=== PATIENT | male | born 1970 | race African-American/Black ===

== ENCOUNTER 2022-08-12 08:24 | Emergency (ER) | payer MEDICAID ==
[~2022-08-12] VITALS: Ht 182.9 cm; Wt 90.0 kg
[2022-08-12 08:25] VITALS: BP 142/84
== END 2022-08-13 09:11 | disposition left against medical advice (07) ==
LOC: ER 08:24
DX: R10.31 Right lower quadrant pain (principal); F14.10 Cocaine abuse, uncomplicated; Z98.890 Other specified postprocedural states
CPT/HCPCS: 99283

== ENCOUNTER 2022-09-12 21:47 | Emergency (ER) | payer MEDICAID ==
[~2022-09-12] VITALS: Ht 182.9 cm; Wt 102.0 kg
[2022-09-12 23:29] LABS: CHLORIDE 107 mEq/L (98-107)
[2022-09-12 23:32] LABS: BASOPHILS % 0.4 % (0.0-2.0); EOSINOPHILS % 8.8 % (0.0-5.0); HEMATOCRIT. 37.2 % (42.0-52.0); HEMOGLOBIN. 12.2 g/dL (14.0-18.0); LYMPHOCYTES % 26.7 % (20.0-50.0); MEAN CORPUSCULAR HEMOGLOBIN 28.7 pg (28.0-32.0); MEAN CORPUSCULAR VOLUME 87.1 fL (80.0-94.0); MEAN PLATELET VOLUME 6.8 fl (7.4-10.4); MONOCYTES % 10.8 % (2.0-8.0); NEUTROPHILS % 53.3 % (40.0-76.0); PLATELET 333 x1000/uL (130-400); RED BLOOD CELL COUNT 4.27 mill/uL (4.7-6.1); RED CELL DISTRIBUTION WIDTH 15.4 % (11.6-14.6)
[2022-09-13] VITALS: BP 136/79
[2022-09-13] MEDS ORDERED: IBUP-2028 MT (03:56)
== END 2022-09-13 04:56 | disposition home or self-care (01) ==
LOC: ER 21:47
DX: K40.90 Unilateral inguinal hernia, without obstruction or gangrene, not specified as recurrent (principal)
CPT/HCPCS: 36415; 74176; 80053; 85025; 99284

== ENCOUNTER 2023-06-27 08:44 | Emergency (ER) | payer MEDICAID ==
[~2023-06-27] VITALS: Ht 185.4 cm; Wt 84.0 kg
[~2023-06-27 08:44] MED LIST: IBUP-2028 MT
[2023-06-27 08:55] VITALS: BP 174/120; PULSE 70; RESP 16; TEMP 98.5; O2SAT 100
[2023-06-27 10:07] LABS: BASOPHILS % 1.2 % (0.0-2.0); EOSINOPHILS % 3.9 % (0.0-5.0); HEMATOCRIT. 45.2 % (42.0-52.0); HEMOGLOBIN. 14.5 g/dL (14.0-18.0); LYMPHOCYTES % 20.2 % (20.0-50.0); MEAN CORPUSCULAR HEMOGLOBIN 28.8 pg (28.0-32.0); MEAN CORPUSCULAR VOLUME 89.9 fL (80.0-94.0); MEAN PLATELET VOLUME 6.4 fl (7.4-10.4); NEUTROPHILS % 66.7 % (40.0-76.0); PLATELET 353 x1000/uL (130-400); RED BLOOD CELL COUNT 5.03 mill/uL (4.7-6.1); RED CELL DISTRIBUTION WIDTH 14.5 % (11.6-14.6); WHITE BLOOD COUNT 7.2 x1000/uL (4.5-11.0)
[2023-06-27 10:16] LABS: PROTHROMBIN TIME 11.1 sec (9.6-11.0)
[2023-06-27 10:28] LABS: ALANINE AMINOTRANSFERASE 25 IU/L (10-49); ALBUMIN 4.1 g/dL (3.2-4.8); ASPARTATE AMINOTRANSFERASE 17 IU/L (<34); BILIRUBIN TOTAL 0.4 mg/dL (0.1-1.0); CALCIUM 9.1 mg/dL (8.7-10.4); CARBON DIOXIDE 29 mEq/L (21-32); CHLORIDE 101 mEq/L (98-107); CREATININE 0.9 mg/dL (0.6-1.3); GLUCOSE 129 mg/dL (70-105); POTASSIUM 4.5 mEq/L (3.5-5.1); PROTEIN TOTAL 7.8 g/dL (6.0-8.3); SODIUM 134 mEq/L (136-145); TROPONIN I HIGH SENSITIVITY 5 ng/L (3.0-53); UREA NITROGEN BLOOD 13 mg/dL (9-23)
[2023-06-27] MEDS: KETOROLAC 30MG/ML VIAL IV STA (11:22)
[2023-06-27] MEDS: SODIUM CHLORIDE 0.9% 1,000 ML IV ONE (11:22)
[2023-06-27] MEDS ORDERED: NA P133E4 RC (13:15)
[2023-06-27 13:41] LABS: CLARITY URINE CLEAR (CLEAR); COLOR URINE YELLOW (YELLOW); GLUCOSE URINE NEGATIVE (NEGATIVE); KETONES URINE NEGATIVE (NEGATIVE); LEUKOCYTE ESTERASE URINE NEGATIVE (NEGATIVE); NITRITE URINE NEGATIVE (NEGATIVE); OCCULT BLOOD URINE NEGATIVE (NEGATIVE); PROTEIN URINE NEGATIVE (NEGATIVE); SPECIFIC GRAVITY URINE 1.015 (1.005-1.030); UROBILINOGEN URINE 0.2 E.U./dL (0.2-1.0)
== END 2023-06-27 13:42 | disposition home or self-care (01) ==
LOC: ER 08:44
DX: K59.00 Constipation, unspecified (principal); I10 Essential (primary) hypertension; Z88.6 Allergy status to analgesic agent; Z98.890 Other specified postprocedural states
CPT/HCPCS: 99285; 74177; 96360; 80053; 81003; 83605; 83690; 85025; 85610; 86850; 86900; 86901; 84484; 36415; J7030

== ENCOUNTER 2023-06-27 23:28 | Emergency (ER) | payer MEDICAID ==
[~2023-06-27] VITALS: Ht 185.4 cm; Wt 91.0 kg
[~2023-06-27 23:28] MED LIST changes: +NA P133E4 RC
[2023-06-27 23:31] VITALS: BP 160/99; PULSE 77; RESP 18; TEMP 98.1; O2SAT 99
== END 2023-06-28 02:30 | disposition left against medical advice (07) ==
LOC: ER 23:39
DX: R10.9 Unspecified abdominal pain (principal); Z53.21 Procedure and treatment not carried out due to patient leaving prior to being seen by health care provider
CPT/HCPCS: 99281

== ENCOUNTER 2023-07-15 03:05 | Emergency (ER) | payer MEDICAID ==
[~2023-07-15] VITALS: Ht 175.3 cm; Wt 70.0 kg
[2023-07-15 03:08] VITALS: BP 139/82; PULSE 76; RESP 16; TEMP 97.9; O2SAT 100
== END 2023-07-15 08:15 | disposition left against medical advice (07) ==
LOC: ER 03:05
DX: K64.9 Unspecified hemorrhoids (principal); Z53.21 Procedure and treatment not carried out due to patient leaving prior to being seen by health care provider
CPT/HCPCS: 99281

== ENCOUNTER 2023-07-19 18:56 | Emergency (ER) | payer MEDICAID ==
[~2023-07-19] VITALS: Ht 188 cm; Wt 72.0 kg
[2023-07-19 19:15] VITALS: BP 146/102; PULSE 78; RESP 20; TEMP 98.2; O2SAT 99
== END 2023-07-19 20:03 | disposition left against medical advice (07) ==
LOC: ER 18:56
DX: R10.9 Unspecified abdominal pain (principal); Z53.21 Procedure and treatment not carried out due to patient leaving prior to being seen by health care provider
CPT/HCPCS: 99281

== ENCOUNTER 2023-08-17 06:57 | Emergency (ER) | payer MEDICAID ==
[~2023-08-17] VITALS: Ht 185.4 cm; Wt 96.0 kg
[~2023-08-17 06:57] MED LIST changes: +OMEP20TA15 MT; +SUCR1TAB30 MT
[2023-08-17 07:00] VITALS: BP 174/96; PULSE 71; RESP 16; TEMP 98.3; O2SAT 100
[2023-08-17 08:01] LABS: INR 0.9; PROTHROMBIN TIME 10.6 sec (9.6-11.0)
[2023-08-17 08:05] LABS: ALANINE AMINOTRANSFERASE 24 IU/L (10-49); ALBUMIN 4.1 g/dL (3.2-4.8); ASPARTATE AMINOTRANSFERASE 17 IU/L (<34); BILIRUBIN TOTAL 0.3 mg/dL (0.1-1.0); CARBON DIOXIDE 29 mEq/L (21-32); CHLORIDE 104 mEq/L (98-107); CREATININE 0.8 mg/dL (0.6-1.3); GLUCOSE 112 mg/dL (70-105); PROTEIN TOTAL 7.7 g/dL (6.0-8.3); SODIUM 135 mEq/L (136-145); TROPONIN I HIGH SENSITIVITY 4 ng/L (3.0-53); UREA NITROGEN BLOOD 11 mg/dL (9-23)
[2023-08-17 08:15] LABS: BASOPHILS % 1.1 % (0.0-2.0); EOSINOPHILS % 3.4 % (0.0-5.0); HEMATOCRIT. 37.2 % (42.0-52.0); LYMPHOCYTES % 24.3 % (20.0-50.0); MEAN CORPUSCULAR HEMOGLOBIN 28.2 pg (28.0-32.0); MEAN CORPUSCULAR HGB CONC 32.3 g/dL (31.0-37.0); MEAN CORPUSCULAR VOLUME 87.3 fL (80.0-94.0); MEAN PLATELET VOLUME 6.4 fl (7.4-10.4); NEUTROPHILS % 58.2 % (40.0-76.0); PLATELET 446 x1000/uL (130-400); RED BLOOD CELL COUNT 4.27 mill/uL (4.7-6.1); RED CELL DISTRIBUTION WIDTH 14.4 % (11.6-14.6); WHITE BLOOD COUNT 7.8 x1000/uL (4.5-11.0)
[2023-08-18] MEDS ORDERED: ATEN-42 PO (16:25)
[2023-08-18] MEDS ORDERED: ERGO1250 PO (16:25)
[2023-08-18] MEDS ORDERED: SUCR1TAB PO (16:25)
[2023-08-18] MEDS ORDERED: OMEP20CA14 PO (16:25)
[2023-08-19] MEDS ORDERED: AMLO5TAB88 MT (10:56)
== END 2023-08-17 09:54 | disposition left against medical advice (07) ==
LOC: ER 07:46
DX: R10.9 Unspecified abdominal pain (principal); Z53.21 Procedure and treatment not carried out due to patient leaving prior to being seen by health care provider
CPT/HCPCS: 36415; 80053; 84484; 85025; 99281

== ENCOUNTER 2023-08-31 08:51 | Emergency (ER) | payer MEDICAID ==
[~2023-08-31] VITALS: Ht 188 cm; Wt 73.0 kg
[~2023-08-31 08:51] MED LIST changes: +AMLO5TAB88 MT; +ATEN-42 PO; +ERGO1250 PO; -IBUP-2028 MT; -NA P133E4 RC; +OMEP20CA14 PO; -OMEP20TA15 MT; +SUCR1TAB PO; -SUCR1TAB30 MT
[2023-08-31 08:53] VITALS: BP 146/100; PULSE 77; RESP 18; TEMP 98.2; O2SAT 98
== END 2023-08-31 09:49 | disposition home or self-care (01) ==
LOC: ER 08:51
DX: R10.819 Abdominal tenderness, unspecified site (principal); I10 Essential (primary) hypertension; Z98.890 Other specified postprocedural states; Z88.0 Allergy status to penicillin; Z88.6 Allergy status to analgesic agent
CPT/HCPCS: 99283

== ENCOUNTER 2023-11-28 10:08 | Emergency (ER) | payer MEDICAID ==
[~2023-11-28] VITALS: Ht 182.9 cm; Wt 82.0 kg
[2023-11-28 10:17] VITALS: BP 136/84; PULSE 78; RESP 16; TEMP 97.7; O2SAT 100
== END 2023-11-28 10:50 | disposition left against medical advice (07) ==
LOC: ER 10:08
DX: R10.2 Pelvic and perineal pain (principal)
CPT/HCPCS: 99283

== ENCOUNTER 2024-01-20 23:13 | Emergency (ER) | payer MEDICAID ==
[~2024-01-20] VITALS: Ht 182.9 cm; Wt 80.0 kg
[2024-01-20 23:14] VITALS: BP 181/81; PULSE 79; RESP 16; TEMP 98.7; O2SAT 98
[2024-01-20] MEDS ORDERED: ACETAMINOPHEN 1000MG/100ML 100 ML IV ONE (23:30)
[2024-01-20] MEDS ORDERED: ONDANSETRON HCL 4MG/2ML INJ IV ONE (23:30)
[2024-01-21] MEDS ORDERED: ONDANSETRON HCL 4MG/2ML INJ IV NR (00:30)
== END 2024-01-21 01:44 | disposition left against medical advice (07) ==
LOC: ER 23:13
DX: K40.90 Unilateral inguinal hernia, without obstruction or gangrene, not specified as recurrent (principal); I10 Essential (primary) hypertension; F12.90 Cannabis use, unspecified, uncomplicated; F10.20 Alcohol dependence, uncomplicated; F15.90 Other stimulant use, unspecified, uncomplicated; Z88.6 Allergy status to analgesic agent; Z88.0 Allergy status to penicillin; Y90.9 Presence of alcohol in blood, level not specified
CPT/HCPCS: 99283; J0131

== ENCOUNTER 2024-01-30 16:15 | Inpatient (IN) | payer MEDICAID ==
[~2024-01-30] VITALS: Ht 182.9 cm; Wt 72.6 kg
[2024-01-30] MEDS: ONDANSETRON HCL 4MG/2ML INJ IV STA ×2 (17:55→20:32)
[2024-01-30] MEDS: MORPHINE SULFATE 4 MG/ML INJ (FOR IV/IM USE) IV STA ×2 (17:56→20:23)
[2024-01-30] MEDS: SODIUM CHLORIDE 0.9% 1,000 ML IV ONE (17:57)
[2024-01-30 18:08] LABS: BASOPHILS % 0.7 % (0.0-2.0); EOSINOPHILS % 0.7 % (0.0-5.0); HEMATOCRIT. 46.5 % (42.0-52.0); HEMOGLOBIN. 15.3 g/dL (14.0-18.0); LYMPHOCYTES % 13.4 % (20.0-50.0); MEAN CORPUSCULAR HEMOGLOBIN 28.5 pg (28.0-32.0); MEAN CORPUSCULAR HGB CONC 32.9 g/dL (31.0-37.0); MEAN CORPUSCULAR VOLUME 86.7 fL (80.0-94.0); MEAN PLATELET VOLUME 6.6 fl (7.4-10.4); MONOCYTES % 9.8 % (2.0-8.0); NEUTROPHILS % 75.4 % (40.0-76.0); PLATELET 368 x1000/uL (130-400); RED BLOOD CELL COUNT 5.36 mill/uL (4.7-6.1); WHITE BLOOD COUNT 9.9 x1000/uL (4.5-11.0)
[2024-01-30 18:14] LABS: CLARITY URINE CLEAR (CLEAR); COLOR URINE YELLOW (YELLOW); GLUCOSE URINE NEGATIVE (NEGATIVE); KETONES URINE 3+ (NEGATIVE); LEUKOCYTE ESTERASE URINE TRACE (NEGATIVE); NITRITE URINE NEGATIVE (NEGATIVE); OCCULT BLOOD URINE NEGATIVE (NEGATIVE); PROTEIN URINE TRACE (NEGATIVE); SPECIFIC GRAVITY URINE 1.024 (1.005-1.030)
[2024-01-30 18:21] LABS: CHLORIDE 97 mEq/L (98-107); PARTIAL THROMBOPLASTIN TIME 29.3 sec (23.4-31.0); POTASSIUM 4.3 mEq/L (3.5-5.1); PROTHROMBIN TIME 11.4 sec (9.6-11.0); SODIUM 133 mEq/L (136-145)
[2024-01-30 18:22] LABS: CARBON DIOXIDE 32 mEq/L (21-32)
[2024-01-30 18:23] LABS: CALCIUM 10.2 mg/dL (8.7-10.4)
[2024-01-30 18:27] LABS: CREATININE 0.9 mg/dL (0.6-1.3); GLUCOSE 96 mg/dL (70-105)
[2024-01-30 18:28] LABS: UREA NITROGEN BLOOD 12 mg/dL (9-23)
[2024-01-30 18:29] LABS: ALANINE AMINOTRANSFERASE 17 IU/L (10-49); ALBUMIN 4.7 g/dL (3.2-4.8); ASPARTATE AMINOTRANSFERASE 16 IU/L (<34)
[2024-01-30 18:29] LABS: BACTERIA URINE 1+; SQUAMOUS EPITHELIAL CELL URINE FEW /lpf (RARE/1+); WBC URINE 0-2 /hpf (0-2)
[2024-01-30 18:30] LABS: BILIRUBIN TOTAL 0.5 mg/dL (0.1-1.0)
[2024-01-30 18:30] LABS: MUCUS URINE 1+ /lpf (NONE/TRACE); RBC URINE 0-2 /hpf (0-2)
[2024-01-30] MEDS: LEVOFLOXACIN 500MG PREMIX 100 ML IV ONE (20:33)
[2024-01-30] MEDS: HYDRALAZINE 20MG/ML VIAL IV ONE (20:33)
[2024-01-31] VITALS: BP 149/77; PULSE 62; RESP 20; TEMP 37.252
[2024-01-31] MEDS ORDERED: MAGNESIUM/ALUMINUM HYDROXIDE/SIMETHICONE 30ML UDC PO PRN (01:45)
[2024-01-31] MEDS ORDERED: ONDANSETRON HCL 4MG/2ML INJ IV PRN ×3 (01:45→09:00)
[2024-01-31] MEDS ORDERED: DIPHENHYDRAMINE 50MG/ML VIAL IV PRN (01:45)
[2024-01-31] MEDS ORDERED: HYDROCODONE/ACETAMINOPHEN 5/325MG TABLET PO PRN (01:45)
[2024-01-31] MEDS ORDERED: ACETAMINOPHEN 325MG TABLET PO PRN ×2 (01:45)
[2024-01-31] MEDS: HYDROCODONE/ACETAMINOPHEN 7.5/325MG TABLET PO PRN (01:59)
[2024-01-31] MEDS: ZOLPIDEM TARTRATE 5MG TABLET PO PRN (01:59)
[2024-01-31] MEDS: SODIUM CHLORIDE 0.9% 3ML FLUSH IVF SCH (06:47)
[2024-01-31] MEDS ORDERED: SKIN ADHESIVE 0.7 GM EA TOP ONE (07:28)
[2024-01-31] MEDS ORDERED: BUPIVACAINE HCL/PF 0.5% (5MG/ML) 10ML ONE (07:28)
[2024-01-31] MEDS ORDERED: LIDOCAINE HCL 1% 10 MG/ML 10ML VIAL ONE (07:59)
[2024-01-31] MEDS ORDERED: DEXAMETHASONE 4MG/ML 1ML VIAL ONE (07:59)
[2024-01-31] MEDS ORDERED: ROCURONIUM BROMIDE 10MG/ML VIAL 5ML IV ONE (07:59)
[2024-01-31] MEDS ORDERED: ONDANSETRON HCL 4MG/2ML INJ ONE (07:59)
[2024-01-31] MEDS ORDERED: PROPOFOL 200MG/20ML VIAL IV ONE (08:00)
[2024-01-31] MEDS ORDERED: FENTANYL CITRATE/PF 50MCG/ML 2ML VIAL ONE (08:00)
[2024-01-31] MEDS ORDERED: MIDAZOLAM HCL 2 MG/2 ML VIAL ONE (08:00)
[2024-01-31] MEDS ORDERED: SUGAMMADEX SODIUM 200MG/2ML VIAL IV ONE (08:49)
[2024-01-31] MEDS ORDERED: HYDROMORPHONE HCL/PF 1MG/ML INJ IV PRN (09:00)
[2024-01-31] MEDS ORDERED: ENOXAPARIN 40MG/0.4ML SYR SUBCUT SCH (09:00)
[2024-01-31] MEDS: OMEPRAZOLE 20MG CAPSULE EXTENDED RELEASE PO SCH (09:00)
[2024-01-31] MEDS ORDERED: CEFAZOLIN SODIUM 1000MG/VIAL ONE (09:10)
[2024-01-31] MEDS ORDERED: NALOXONE HCL 0.4MG/ML VIAL IV PRN (09:15)
[2024-01-31] MEDS: FENTANYL CITRATE/PF 50MCG/ML 2ML VIAL IV PRN (10:34)
[2024-01-31] MEDS: DEXT 5%/0.45% NACL KCL 20MEQ/L 1,000 ML IV SCH (14:00)
[2024-01-31] MEDS: MORPHINE SULFATE 2 MG/ML INJ (NOT FOR IM USE) IV PRN (15:13)
[2024-01-31 16:00] VITALS: BP 153/95; PULSE 90; RESP 20; TEMP 36.114; O2SAT 99
[2024-01-31 20:00] VITALS: BP 177/107; PULSE 74; RESP 20; TEMP 36.72516; O2SAT 99
[2024-01-31] MEDS: SENNOSIDES 8.6MG TABLET PO SCH (21:23)
[2024-01-31] MEDS: PANTOPRAZOLE 40MG DR TABLET PO SCH (21:23)
[2024-01-31] MEDS: DOCUSATE SODIUM 100MG CAPSULE PO SCH (21:28)
[2024-01-31] MEDS: MORPHINE SULFATE 4 MG/ML INJ (FOR IV/IM USE) IV PRN (22:59)
[2024-01-31] MEDS: LEVOFLOXACIN 500MG PREMIX 100 ML IV SCH (23:46)
[2024-02-01] VITALS: BP 147/87; PULSE 78; RESP 19; TEMP 36.61404; O2SAT 100
[2024-02-01] MEDS: BISACODYL 10MG SUPP PR PRN (02:04)
[2024-02-01 04:00] VITALS: BP 134/106; PULSE 76; RESP 19; TEMP 36.3918; O2SAT 99
[2024-02-01] MEDS: CLONIDINE 0.1MG TABLET PO PRN (05:16)
[2024-02-01 08:00] VITALS: BP 155/87; PULSE 75; RESP 18; TEMP 36.83628; O2SAT 98
[2024-02-01] MEDS: ENOXAPARIN 40MG/0.4ML SYR SUBCUT SCH (08:14)
[2024-02-01 12:00] VITALS: BP 122/67; PULSE 72; RESP 18; TEMP 36.61404; O2SAT 98
[2024-02-01 15:28] VITALS: BP 139/84; PULSE 88; TEMP 98.1; O2SAT 98
== END 2024-02-01 16:00 | disposition home or self-care (01) | DRG 228 ==
LOC: ER 16:15 → 5WST 20:13 → EDBEDREQ 20:21 → 8WST 23:57
PROVIDERS: ADMIT Internal Medicine; ATTEND Internal Medicine
PROC: 0YU50JZ Supplement Right Inguinal Region with Synthetic Substitute, Open Approach (ICD-10-PCS; principal; 2024-01-31)
DX: K40.91 Unilateral inguinal hernia, without obstruction or gangrene, recurrent (principal); I10 Essential (primary) hypertension; N45.1 Epididymitis; Z96.642 Presence of left artificial hip joint; Z88.0 Allergy status to penicillin; Z88.6 Allergy status to analgesic agent
CPT/HCPCS: 36415; 71045; 74176; 76870; 80053; 81003; 85025; 86850; 86900; 93005; 93976; 99285; C1781; J0360; J0690; J1100; J1650; J1956; J2250; J2270; J2405; J2704; J3010; J3490; J7030

== ENCOUNTER 2024-02-15 21:05 | Emergency (ER) | payer MEDICAID ==
[~2024-02-15] VITALS: Ht 170.2 cm; Wt 64.0 kg
[2024-02-15 21:20] VITALS: TEMP 98.1; O2SAT 99
[2024-02-15] MEDS: HYDROCODONE/ACETAMINOPHEN 5/325MG TABLET PO ONE (22:30)
[2024-02-15] MEDS: ACETAMINOPHEN 1000MG/100ML 100 ML IV ONE (22:30)
[2024-02-15 22:51] LABS: BASOPHILS % 0.8 % (0.0-2.0); EOSINOPHILS % 2.7 % (0.0-5.0); HEMATOCRIT. 38.5 % (42.0-52.0); LYMPHOCYTES % 15.3 % (20.0-50.0); MEAN CORPUSCULAR HEMOGLOBIN 29.6 pg (28.0-32.0); MEAN CORPUSCULAR HGB CONC 33.7 g/dL (31.0-37.0); MEAN CORPUSCULAR VOLUME 87.7 fL (80.0-94.0); MEAN PLATELET VOLUME 6.3 fl (7.4-10.4); MONOCYTES % 7.8 % (2.0-8.0); NEUTROPHILS % 73.4 % (40.0-76.0); PLATELET 397 x1000/uL (130-400); RED BLOOD CELL COUNT 4.39 mill/uL (4.7-6.1); RED CELL DISTRIBUTION WIDTH 15.4 % (11.6-14.6)
[2024-02-15 22:56] LABS: CHLORIDE 100 mEq/L (98-107); POTASSIUM 3.9 mEq/L (3.5-5.1); SODIUM 135 mEq/L (136-145)
[2024-02-15 22:57] LABS: CARBON DIOXIDE 31 mEq/L (21-32); INR 1.1; PROTHROMBIN TIME 11.8 sec (9.6-11.0)
[2024-02-15 22:58] LABS: CALCIUM 9.4 mg/dL (8.7-10.4)
[2024-02-15 23:02] LABS: CREATININE 0.8 mg/dL (0.6-1.3); GLUCOSE 93 mg/dL (70-105)
[2024-02-15 23:03] LABS: UREA NITROGEN BLOOD 6 mg/dL (9-23)
[2024-02-15 23:04] LABS: ALANINE AMINOTRANSFERASE 21 IU/L (10-49); ALBUMIN 4.3 g/dL (3.2-4.8); ASPARTATE AMINOTRANSFERASE 17 IU/L (<34); BILIRUBIN DIRECT 0.2 mg/dL (<=3.0)
[2024-02-15 23:05] LABS: BILIRUBIN TOTAL 0.6 mg/dL (0.1-1.0); PROTEIN TOTAL 7.6 g/dL (6.0-8.3)
[2024-02-15 23:28] LABS: ETHANOL BLOOD < 10 mg/dL (<10)
[2024-02-16] MEDS ORDERED: ACET-2708 MT (00:07)
[2024-02-16] MEDS ORDERED: ONDA4TAB50 MT (00:07)
[2024-02-16 00:58] VITALS: BP 151/86; PULSE 80; RESP 18; O2SAT 100
== END 2024-02-16 00:59 | disposition home or self-care (01) ==
LOC: ER 21:05
DX: G89.18 Other acute postprocedural pain (principal); R10.9 Unspecified abdominal pain; I10 Essential (primary) hypertension; F12.10 Cannabis abuse, uncomplicated; Z79.899 Other long term (current) drug therapy; Z88.0 Allergy status to penicillin; Z88.6 Allergy status to analgesic agent
CPT/HCPCS: 36415; 80048; 80076; 80320; 83605; 85025; 96365; 99284; G0480; J0131

== ENCOUNTER 2024-02-28 19:09 | Emergency (ER) | payer MEDICAID ==
[~2024-02-28] VITALS: Ht 185.4 cm; Wt 75.0 kg
[~2024-02-28 19:09] MED LIST changes: +ACET-2708 MT; +ONDA4TAB50 MT
[2024-02-28 19:27] VITALS: O2SAT 99
[2024-02-28 20:13] LABS: BASOPHILS % 0.9 % (0.0-2.0); EOSINOPHILS % 2.7 % (0.0-5.0); HEMATOCRIT. 36.1 % (42.0-52.0); HEMOGLOBIN. 11.9 g/dL (14.0-18.0); LYMPHOCYTES % 20.5 % (20.0-50.0); MEAN CORPUSCULAR HEMOGLOBIN 28.8 pg (28.0-32.0); MEAN CORPUSCULAR HGB CONC 32.9 g/dL (31.0-37.0); MEAN CORPUSCULAR VOLUME 87.6 fL (80.0-94.0); MEAN PLATELET VOLUME 5.9 fl (7.4-10.4); MONOCYTES % 9.1 % (2.0-8.0); NEUTROPHILS % 66.8 % (40.0-76.0); PLATELET 313 x1000/uL (130-400); RED BLOOD CELL COUNT 4.12 mill/uL (4.7-6.1); RED CELL DISTRIBUTION WIDTH 15.8 % (11.6-14.6); WHITE BLOOD COUNT 7.4 x1000/uL (4.5-11.0)
[2024-02-28 20:20] LABS: CHLORIDE 101 mEq/L (98-107); POTASSIUM 3.6 mEq/L (3.5-5.1); SODIUM 136 mEq/L (136-145)
[2024-02-28 20:21] LABS: CALCIUM 9.3 mg/dL (8.7-10.4); CARBON DIOXIDE 30 mEq/L (21-32)
[2024-02-28 20:26] LABS: CREATININE 0.8 mg/dL (0.6-1.3); GLUCOSE 94 mg/dL (70-105); UREA NITROGEN BLOOD 10 mg/dL (9-23)
[2024-02-28 20:28] LABS: ALANINE AMINOTRANSFERASE 18 IU/L (10-49); ALBUMIN 4.2 g/dL (3.2-4.8); ASPARTATE AMINOTRANSFERASE 19 IU/L (<34); BILIRUBIN DIRECT 0.1 mg/dL (<=3.0)
[2024-02-28 20:29] LABS: BILIRUBIN TOTAL 0.4 mg/dL (0.1-1.0); PROTEIN TOTAL 7.4 g/dL (6.0-8.3)
[2024-02-28 22:03] LABS: CLARITY URINE CLEAR (CLEAR); COLOR URINE YELLOW (YELLOW); GLUCOSE URINE NEGATIVE (NEGATIVE); KETONES URINE TRACE (NEGATIVE); LEUKOCYTE ESTERASE URINE NEGATIVE (NEGATIVE); NITRITE URINE NEGATIVE (NEGATIVE); OCCULT BLOOD URINE NEGATIVE (NEGATIVE); PROTEIN URINE NEGATIVE (NEGATIVE); SPECIFIC GRAVITY URINE 1.021 (1.005-1.030)
[2024-02-29 02:00] VITALS: BP 136/72; PULSE 65; RESP 19; TEMP 36.72516; O2SAT 98
[2024-02-29] MEDS ORDERED: IOHEXOL-300 100 ML BOTTLE ONE (04:05)
== END 2024-02-29 04:00 | disposition home or self-care (01) ==
LOC: ER 19:09
DX: K40.90 Unilateral inguinal hernia, without obstruction or gangrene, not specified as recurrent (principal); K59.00 Constipation, unspecified; I10 Essential (primary) hypertension; Z88.0 Allergy status to penicillin; Z79.899 Other long term (current) drug therapy; Z88.6 Allergy status to analgesic agent; Z88.1 Allergy status to other antibiotic agents
CPT/HCPCS: 80076; 80048; 81003; 85025; 36415; 99285; 74177; Z7610; Q9967

== ENCOUNTER 2024-02-29 15:32 | Emergency (ER) | payer MEDICAID ==
[~2024-02-29] VITALS: Ht 177.8 cm; Wt 73.0 kg
[2024-02-29 15:59] VITALS: BP 122/90; PULSE 89; RESP 16; TEMP 97.3; O2SAT 100
== END 2024-02-29 17:38 | disposition left against medical advice (07) ==
LOC: ER 15:32
DX: R10.9 Unspecified abdominal pain (principal); Z53.21 Procedure and treatment not carried out due to patient leaving prior to being seen by health care provider

== ENCOUNTER 2024-03-16 20:28 | Emergency (ER) | payer MEDICAID | END 2024-03-16 21:03 | disposition left against medical advice (07) | LOC: ER 20:28 | DX: Z53.21 Procedure and treatment not carried out due to patient leaving prior to being seen by health care provider (principal) ==

== ENCOUNTER 2024-03-21 15:23 | Emergency (ER) | payer MEDICAID | END 2024-03-21 18:11 | disposition left against medical advice (07) | LOC: ER 15:23 | DX: R68.89 Other general symptoms and signs (principal); Z53.21 Procedure and treatment not carried out due to patient leaving prior to being seen by health care provider ==

== ENCOUNTER 2024-03-22 03:38 | Emergency (ER) | payer MEDICAID ==
[~2024-03-22] VITALS: Ht 185.4 cm; Wt 77.0 kg
[2024-03-22 03:39] VITALS: O2SAT 95
[2024-03-22 03:47] VITALS: BP 157/109; PULSE 101; RESP 16; TEMP 98.9; O2SAT 98
[2024-03-22] MEDS ORDERED: ACETAMINOPHEN 500MG TABLET PO ONE (04:15)
== END 2024-03-22 04:50 | disposition left against medical advice (07) ==
LOC: ER 03:59
DX: R11.10 Vomiting, unspecified (principal); Z53.21 Procedure and treatment not carried out due to patient leaving prior to being seen by health care provider

== ENCOUNTER 2024-03-29 01:45 | Emergency (ER) | payer MEDICAID ==
[~2024-03-29] VITALS: Ht 188 cm; Wt 72.3 kg
[2024-03-29 01:51] VITALS: O2SAT 99
[2024-03-29 01:54] VITALS: BP 171/104; PULSE 66; RESP 19; TEMP 98.4; O2SAT 98
== END 2024-03-29 03:37 | disposition left against medical advice (07) ==
LOC: ER 01:45
DX: Z53.21 Procedure and treatment not carried out due to patient leaving prior to being seen by health care provider (principal)